=== PATIENT | female | born 1995 | race Caucasian/White ===

== ENCOUNTER 2016-03-14 18:06 | Emergency (ER) | payer BC ==
[~2016-03-14] VITALS: Ht 165.1 cm; Wt 90.9 kg
[~2016-03-14 18:06] MED LIST: ACETAMINOPHEN W1 TA6 PO; CLARITIN REDITAB5 MG PO; DIASTAT ACUDIAL10 MG REC; DOXYCYCLINE 10100 MG PO; MOTRIN800 MG PO; NO HOME MEDICATIONS
[2016-03-14 18:10] VITALS: TEMP 98.4
[2016-03-14] MEDS ORDERED: TEMOVATE0.05% TP (18:13)
[2016-03-14] MEDS ORDERED: LOW-OGESTREL 281 TAB PO (18:13)
[2016-03-14] MEDS ORDERED: PROVENTIL0.09 MG/A1 IH (18:13)
[2016-03-14] MEDS ORDERED: ATIVAN 0.50.5 MG/TAB PO (18:14)
[2016-03-14 19:00] LABS: BASO % 0.5 % (0.0-2.0); EOS # 0.1 (0.0-0.7); EOS % 1.6 % (0-4.0); GRAN # 4.3 (1.4-6.5); GRAN % 58.4 % (42.2-75.2); HEMATOCRIT 39.6 % (37.0-47.0); HEMOGLOBIN 14.1 g/dl (12.5-16.0); LYMPH # 2.3 (1.2-3.4); MEAN CELL VOLUME 84 fl (80.0-100.0); MEAN CORPUSCULAR HEMOGLOBIN 30 pg (27.0-31.0); MEAN CORPUSCULAR HGB CONC 36 g/dl (33.0-37.0); MONO # 0.6 (0.1-0.6); MONO % 8.2 % (1.7-9.3); PLATELET COUNT 249 K/mm3 (130-400); RED BLOOD COUNT 4.73 M/mm3 (4.10-5.30); WHITE BLOOD COUNT 7.4 K/mm3 (4.8-10.8)
[2016-03-14 19:12] LABS: ADJUSTED CALCIUM 9.3 mg/dL (8.4-10.2); ALANINE AMINOTRANSFERASE 40 U/L (9-52); ALBUMIN 4.2 gm/dL (3.5-5.0); ALKALINE PHOSPHATASE 58 U/L (50-136); ANION GAP 15 mmol/L (7-16); BILIRUBIN,TOTAL 0.7 mg/dL (0.0-1.0); BLOOD UREA NITROGEN 12 mg/dL (7-17); CALCIUM 9.5 mg/dL (8.4-10.2); CARBON DIOXIDE 24 mmol/L (22-30); CHLORIDE 103 mmol/L (98-107); CREATININE, serum 0.76 mg/dL (0.52-1.25); GLUCOSE 95 mg/dL (74-106); POTASSIUM 3.4 mmol/L (3.4-5.0); SODIUM 142 mmol/L (137-145); TOTAL PROTEIN 7.7 gm/dL (6.4-8.2)
[2016-03-14 19:30] LABS: TROPONIN-I < 0.012 ng/mL (0.000-0.034)
[2016-03-14 20:00] VITALS: BP 127/82; PULSE 86
== END 2016-03-14 20:01 | disposition home or self-care (01) ==
LOC: COL.ER 18:06
PROVIDERS: Emergency Medicine
DX: F41.9 Anxiety disorder, unspecified (principal)

== ENCOUNTER → 2016-08-25 | Outpatient (CLI) | payer BC, OTHER ==
[~2016-08-25] MED LIST changes: +ATIVAN 0.50.5 MG/TAB PO; +LOW-OGESTREL 281 TAB PO; +PROVENTIL0.09 MG/A1 IH; +TEMOVATE0.05% TP
== END ==
LOC: COL.VAS 12:52
DX: M79.89 Other specified soft tissue disorders (principal)

== ENCOUNTER 2020-11-03 01:11 | Inpatient (IN) | payer BC ==
[~2020-11-03] VITALS: Ht 165.1 cm; Wt 113.8 kg
[2020-11-03 01:48] LABS: COLLECTION METHOD CLEAN CATCH
[2020-11-03 01:53] LABS: BASO % 0.3 % (0.0-2.0); EOS % 0.1 % (0-4.0); GRAN % 88.7 % (42.2-75.2); HEMOGLOBIN 11.3 g/dl (12.5-16.0); LYMPH % 6.2 % (20.0-51.0); MEAN CELL VOLUME 87 fl (80.0-100.0); MEAN CORPUSCULAR HEMOGLOBIN 29 pg (27.0-31.0); MEAN CORPUSCULAR HGB CONC 34 g/dl (33.0-37.0); MEAN PLATELET VOLUME 9.3 fl (7.4-10.4); MONO # 0.7 (0.1-0.6); MONO % 4.3 % (1.7-9.3); PLATELET COUNT 238 K/mm3 (130-400); RED BLOOD COUNT 3.87 M/mm3 (4.10-5.30)
[2020-11-03 01:55] LABS: HEMATOCRIT 33.5 % (37.0-47.0)
[2020-11-03 01:58] LABS: MUCOUS Present /lpf; PH 6 (5-8); URINE APPEARANCE Cloudy; URINE BACTERIA Rare /hpf; URINE BILIRUBIN Negative (NEGATIVE); URINE BLOOD 1+ (NEGATIVE); URINE COLOR Yellow; URINE GLUCOSE Negative (NEGATIVE); URINE KETONE 1+ (NEGATIVE); URINE LEUKOCYTE ESTERASE 3+ (NEGATIVE); URINE NITRATE Negative (NEGATIVE); URINE PROTEIN(semi-quant) 1+ (NEGATIVE); URINE UROBILINOGEN Negative (NEGATIVE)
[2020-11-03 02:11] LABS: BILIRUBIN,TOTAL 0.8 mg/dL (0.2-1.2); C-REACTIVE PROTEIN 8.8 mg/dL (0.00-0.50); CALCIUM 9.2 mg/dL (8.4-10.2); CREATININE, serum 0.69 mg/dL (0.57-1.11); POTASSIUM 3.9 mmol/L (3.5-4.5); TOTAL PROTEIN 6.8 gm/dL (6.2-8.1)
[2020-11-03] MEDS ORDERED: GLUCOPHAGE500 MG/TAB PO (02:23)
[2020-11-03] MEDS ORDERED: CAPACET 325 MG-1 CAP (02:25)
--- NOTE | 2020-11-03 03:15 | NUR ---
FHR NST strip completed down in ER by this RN. No contractions noted per TOCO. Pt denies contractions, leaking of fluids or vaginal bleeding. Pt reports good movement. States "baby just kicked." Fluids running per CHARGE NURSE. 0415: observes FHR strip and okay with it at this time. New orders recieved. 0535: Pt wheeled to 222 and ambulatory to bed. Pt oriented to room. VS taken and plan of care explained to pt and spouse who verbalize their understanding. Denies questions at this time. Call light within reach.
[2020-11-03 05:35] VITALS: BP 113/57; PULSE 113; TEMP 99.3
--- NOTE | 2020-11-03 07:30 | NUR ---
PT REPORTS NAUSEA WITH A LARGE AMOUNT OF VOMITING, STATES "IM PRETTY SURE I JUST PUKED UP ALL OF MY TYLENOL YOU JUST GAVE ME," PT REPORTS RELIEF FOLLOWING EMESIS, AND REMAINS AFEBRILE. VITAL SIGNS STABLE. OFFERED NEW GOWN AND CLEAN UNDERWEAR. COOL WASH CLOTH TO FOREHEAD UPON EXITING ROOM. WILL CONTIUE TO MONITOR.
[2020-11-03 08:30] VITALS: BP 113/54; PULSE 123; TEMP 97.9
--- NOTE | 2020-11-03 09:10 | NUR ---
AT BEDSIDE, VERBAL ORDERS FOR NST QSHIFT INSTEAD OF QDAILY, CBC SCHEDULED FOR TOMORROW AM, CONTINUE WITH LR IVF @ 125ML/HR. NO FURTHER ORDERS AT THIS TIME.
--- NOTE | 2020-11-03 09:37 | NUR ---
Initial visit; Patient thanked Technology Risk Intern for looking in on her and states she is doing much better. Technology Risk Intern offered God's blessings and a 'get well' wish.
--- NOTE | 2020-11-03 11:45 | NUR ---
PT REPORTS "FEELING WORSE AGAIN AND FEBRILE". 99.0 ORAL TEMP OBTAINED. NST PERFORMED AT THIS TIME. HEART RATE TACHYCARDIC IN THE 200-210 RANGE. AT NURSES STATION AND NOTIFIED. ACCELERATIONS NOTED WITH NO DECELERATIONS. MODERATE VARIABILITY. PO MOTRIN AND TYLENOL ADMINISTERED PER . WE ARE TO CONTINUE PO TYLENOL ON Q6H SCHEDULE. UPON COMPLETION OF NST FHR WAS DOWN TO 175 BASELINE, CATEGORY 1 STRIP. PT REMAINS TACHYCARDIC (HR:118) WITH IVF INFUSING @ 125/HR PER ORDER. COOL WASH CLOTH TO FOREHEAD, WILL CONTINUE TO MONITOR. NO FURTHER ORDERS AT THIS TIME.
[2020-11-03 12:30] VITALS: BP 114/51; PULSE 118; TEMP 99.3
[2020-11-03 16:23] VITALS: BP 101/48; PULSE 100; TEMP 97.8
--- NOTE | 2020-11-03 16:30 | NUR ---
PT AFEBRILE, REPORTS SHE IS "FEELING MUCH BETTER THIS AFTERNOON." VITAL SIGNS STABLE. REPORTS POSITIVE MOVEMENT. DENIES NAUSEA. DENIES NEEDS AT THIS TIME. WILL CONTINUE WITH CURRENT POC.
[2020-11-03 20:16] VITALS: BP 115/67; PULSE 105; TEMP 98.4
[2020-11-03 23:20] VITALS: BP 112/56; PULSE 108; TEMP 99.1
[2020-11-04 03:30] VITALS: BP 96/47; PULSE 97; TEMP 97.9
[2020-11-04 08:00] VITALS: BP 112/58; PULSE 119; TEMP 98.7
[2020-11-04 08:03] LABS: MEAN CELL VOLUME 91 fl (80.0-100.0); MEAN CORPUSCULAR HGB CONC 33 g/dl (33.0-37.0); MEAN PLATELET VOLUME 9.3 fl (7.4-10.4); PLATELET COUNT 175 K/mm3 (130-400); RED BLOOD COUNT 3.27 M/mm3 (4.10-5.30); REDCELL DISTRIBUTION WIDTH-CV 13.3 % (11.5-14.5)
[2020-11-04 08:13] LABS: HEMATOCRIT 29.6 % (37.0-47.0); HEMOGLOBIN 9.8 g/dl (12.5-16.0); MEAN CORPUSCULAR HEMOGLOBIN 30 pg (27.0-31.0)
--- NOTE | 2020-11-04 08:45 | NUR ---
0845: AT BEDSIDE ASSESSING PT AND DISCUSSING POC. PT C/O NAUSEA & VOMITING AGAIN THIS MORNING ASSOCIATED WITH HER REPORTED MIGRAINE AND FLANK PAIN. VORB FOR FIORICET, MOTRIN, PO PROTONIX, TUMS AND TO DECREASE LR TO 75ML/HR. PT WILL GET X2 MORE DOSES OF IV ABX THEN CONTINUE WITH PO ABX FOLLOWING THIS AFTERNOONS DOSE. 0914: PT TAKES PO PAIN CONTROL AND NAUSEA MEDS. WITHIN 5 MINUTES PT HAS A LARGE AMOUNT OF EMESIS AND THERE ARE VISIBLE PILL DEBRIS IN BASIN. UNABLE TO DISTINGUISH HOW MUCH OF PO MEDS PT WAS ABLE TO RETAIN. PER TORB ADMINISTER IV ZOFRAN 4MG Q6H PRN, PROTONIX IV 20MG BID, AND 2MG IV MORPHINE X1. MAY GIVE PO FIORICET AGAIN IN 4 HOURS. ADMINISTERED PER ORDER.
[2020-11-04 12:23] VITALS: BP 122/62; PULSE 78; TEMP 98.8
[2020-11-04 16:22] VITALS: BP 103/50; PULSE 118; TEMP 99
--- NOTE | 2020-11-04 16:22 | NUR ---
PT REPORTS MIGRAINE IS "A LITTLE BIT BETTER, I THINK I AM JUST TIRED, AND THATS MAKING ME NAUSEOUS." PT REQUESTING IV PHENERGEN TO HELP RELIEVE NAUSEA AND HELP HER "GET SOME REST." IV PHENERGEN INFUSING AT THIS TIME. PT ABLE TO KEEP DOWN A SMALL AMOUNT OF SOUP AND CRACKERS THIS AFTERNOON WITHOUT VOMITING. HEART RATE ELEVATED AT 118, AND LOW GRADE TEMP OF 99.0 AT THIS TIME. PO TYLENOL ADMINISTERED AND PT ALSO WAS ABLE TO KEEP THAT ORAL MEDICATION DOWN.
[2020-11-04 19:30] VITALS: BP 134/72; PULSE 110; TEMP 100.2
[2020-11-05 03:30] VITALS: BP 133/67; PULSE 107; TEMP 99
[2020-11-05 07:15] LABS: MEAN CELL VOLUME 87 fl (80.0-100.0); MEAN CORPUSCULAR HGB CONC 34 g/dl (33.0-37.0); MEAN PLATELET VOLUME 9.3 fl (7.4-10.4); PLATELET COUNT 182 K/mm3 (130-400); RED BLOOD COUNT 3.05 M/mm3 (4.10-5.30); REDCELL DISTRIBUTION WIDTH-CV 13.2 % (11.5-14.5)
[2020-11-05 07:22] LABS: HEMATOCRIT 26.6 % (37.0-47.0); HEMOGLOBIN 8.9 g/dl (12.5-16.0); MEAN CORPUSCULAR HEMOGLOBIN 29 pg (27.0-31.0)
[2020-11-05 07:23] VITALS: BP 113/74; PULSE 78; TEMP 98.1
[2020-11-05] MEDS ORDERED: MACROBID 1100 MG/CAP PO (08:46)
[2020-11-05] MEDS ORDERED: PROTONIX20 MG PO (08:47)
== END 2020-11-05 09:20 | disposition home or self-care (01) | DRG 833 ==
LOC: COL.ER 01:11 → OB 02:12
PROVIDERS: Nurse Practitioner; ADMIT Student in an Organized Health Care Education/Training Program
DX: O23.02 Infections of kidney in pregnancy, second trimester (principal); O99.012 Anemia complicating pregnancy, second trimester; D64.9 Anemia, unspecified; O99.612 Diseases of the digestive system complicating pregnancy, second trimester; Z3A.25 25 weeks gestation of pregnancy; K21.9 Gastro-esophageal reflux disease without esophagitis; G43.909 Migraine, unspecified, not intractable, without status migrainosus
CPT/HCPCS: C9113; J2270; J2405; J2543; J2550; J7030; J7120

== ENCOUNTER 2021-02-01 07:17 | Inpatient (IN) | payer BC ==
[~2021-02-01] VITALS: Ht 165.1 cm; Wt 115.9 kg
[~2021-02-01 07:17] MED LIST changes: +CAPACET 325 MG-1 CAP; +GLUCOPHAGE500 MG/TAB PO; +MACROBID 1100 MG/CAP PO; +PROTONIX20 MG PO
[2021-02-02 19:30] VITALS: BP 129/72; PULSE 93; TEMP 99.1
[2021-02-02 20:30] VITALS: BP 122/70; PULSE 82
[2021-02-02 21:00] VITALS: BP 117/66; PULSE 91
--- NOTE | 2021-02-02 21:46 | NUR ---
26 YO AT 39.4 WEEKS GESTATION TO LDR 5 FOR ELECTIVE INDUCTION OF LABOR. PT REPORTS A FEW IRREG CTXS, DENIES VAGINAL BLEEDING OR LEAKING FLUID AND REPORTS GOOD ACTIVITY. INDUCTION PROCESS DISCUSSED WITH PT AND , ALL QUESTIONS ANSWERED
[2021-02-02 22:16] LABS: BASO % 0.4 % (0.0-2.0); EOS % 0.3 % (0.0-4.0); GRAN # 6.6 K/mm3 (1.4-6.5); GRAN % 70.4 % (42.2-75.2); HEMOGLOBIN 10.2 g/dl (12.5-16.0); LYMPH # 1.9 K/mm3 (1.2-3.4); MEAN CELL VOLUME 82 fl (80.0-100.0); MEAN CORPUSCULAR HEMOGLOBIN 27 pg (27-31); MEAN CORPUSCULAR HGB CONC 33 g/dl (33.0-37.0); MEAN PLATELET VOLUME 10.5 fl (7.4-10.4); MONO # 0.8 K/mm3 (0.1-0.6); MONO % 8.7 % (1.7-9.3); PLATELET COUNT 253 K/mm3 (130-400); RED BLOOD COUNT 3.78 M/mm3 (4.10-5.30)
[2021-02-02 22:17] LABS: HEMATOCRIT 30.8 % (37.0-47.0)
[2021-02-03] VITALS (57 sets, daily range): BP systolic 112–163; BP diastolic 47–96; PULSE 67–107; TEMP 97.8–99
--- NOTE | 2021-02-03 01:39 | NUR ---
CONTRACTIONS INDETERMINENT, EFM OFF, PT UP TO BATHROOM
--- NOTE | 2021-02-03 01:45 | NUR ---
DIFFICULT TO CLICKING MACHINE OPERATOR FHT'S RN REMAINS AT BEDSIDE ATTEMPTING TO GET CONSISTENT TRACING OF FHT'S
--- NOTE | 2021-02-03 03:12 | NUR ---
CTXS NOT TRACING ON EFM, PT FEELING CRAMPING OFF AND ON
--- NOTE | 2021-02-03 03:17 | NUR ---
FHT'S NOT TRACING RN AT BEDSIDE ADJUSTING US
--- NOTE | 2021-02-03 05:22 | NUR ---
EFM OFF, UP TO SHOWER
--- NOTE | 2021-02-03 09:35 | NUR ---
0935- Dr. Hahn to bedside. SVE by provider /-2, AROM for moderate amount of clear fluid. Carolyn care provided. Pt wedge left. Pt requesting epidural. Jemal Sifuentes CRNA on unit and notified. 0940- Pt to edge of bed for epidural placement. 0953- FHR tracing intermittently due to maternal position and habitus. Pitocin paused. 0954- Epidural placed and single shot at this time by Jemal Sifuentes CRNA. See anesthesia record. 1001- Pt wedge left. Plan of care and safety precautions reviewed. Pt verbalizes understanding. Pitocin resumed at 14mu.
--- NOTE | 2021-02-03 11:25 | NUR ---
Bilateral side lying hip release.
--- NOTE | 2021-02-03 13:40 | NUR ---
1340- FHR and ctx tracing intermittently. FHR decels audible to 90's with RN at bedside adj EFM. Difficult to determine FHR decel onset. Patient right and left lateral. LR bolus. 1347- Dr. Hahn updated on pt. See physician notification. 1353- FSE reviewed with pt who verbalizes understanding and agreeable to placement. FSE placed by this RN.
--- NOTE | 2021-02-03 14:56 | NUR ---
1456- Patient calls RN to bedside and reports increased rectal pressure. SVE by this RN C/+2. 1503- Dr. Hahn updated on pt. See physician notification. Plan of care reviewed with patient who verbalizes understanding. Instructed on pushing with contractions. 1515- Patient begins to push with contractions with RN at bedside. Moves vertex well. 1524- Dr. Hahn requested for delivery. See physician notification. 1533- Dr. Hahn to bedside for delivery. 1540- Delivery of head. NC x1 reduced on perineum. 20 second soulder dystocial. Resolves with Geovani and rotation by provider. Complete delivery of body at 1540. Pitocin paused. 1550- Spontaneous and intact delivery of placenta. Pitocin to 333ml/hr per protocol. 2nd degree perineal lac repaired by Dr. Hahn. Free flow noted. Fundus boggy, firms with massage. 1555- Methergine given. See emar. 1557- Straight cath by Dr. Hahn. 1600- Cytotec 1000mcg given by Dr. Hahn. See emar. Fundus firm, midline, and bleeding minimal. Carolyn care provided, pads changed, and ice pack to perineum. Plan of care and safety precautions reviewed. See doctor dictation, anesthesia record, and nurses notes.
[2021-02-04 04:30] VITALS: BP 105/55; PULSE 79; TEMP 98.3
[2021-02-04 07:15] VITALS: BP 117/66; PULSE 78; TEMP 98.6
[2021-02-04] MEDS ORDERED: IBU800 M1 PO (09:08)
[2021-02-04 12:45] VITALS: BP 121/76; PULSE 74; TEMP 97.8
--- NOTE | 2021-02-04 12:58 | NUR ---
Ibuprofen 800 mg, tylenol 1000 mg given as ordered.
[2021-02-04 16:00] VITALS: BP 118/63; PULSE 76; TEMP 97.8
--- NOTE | 2021-02-04 19:00 | NUR ---
1900-Discharge instructions given to patient. Patient verbalizes understanding. All questions answered at this time. 1906-Patient ambulates off unit with spouse and infant in carseat.
== END 2021-02-04 19:07 | disposition home or self-care (01) | DRG 806 ==
LOC: LDR 02-02 07:17 → OB 02-02 18:55 → LDR 02-02 18:55 → OB 02-03 19:15
PROVIDERS: ADMIT Student in an Organized Health Care Education/Training Program
PROC: 10E0XZZ Delivery of Products of Conception, External Approach (ICD-10-PCS; principal; 2021-02-02)
PROC: 0KQM0ZZ Repair Perineum Muscle, Open Approach (ICD-10-PCS; 2021-02-02)
PROC: 10907ZC Drainage of Amniotic Fluid, Therapeutic from Products of Conception, Via Natural or Artificial Opening (ICD-10-PCS; 2021-02-02)
PROC: 3E0P7VZ Introduction of Hormone into Female Reproductive, Via Natural or Artificial Opening (ICD-10-PCS; 2021-02-02)
PROC: 3E033VJ Introduction of Other Hormone into Peripheral Vein, Percutaneous Approach (ICD-10-PCS; 2021-02-02)
DX: O99.344 Other mental disorders complicating childbirth (principal); O72.1 Other immediate postpartum hemorrhage; Z37.0 Single live birth; O99.824 Streptococcus B carrier state complicating childbirth; O99.284 Endocrine, nutritional and metabolic diseases complicating childbirth; O99.214 Obesity complicating childbirth; E28.2 Polycystic ovarian syndrome; F41.9 Anxiety disorder, unspecified; O99.52 Diseases of the respiratory system complicating childbirth; J45.909 Unspecified asthma, uncomplicated; E55.9 Vitamin D deficiency, unspecified; O69.81X0 Labor and delivery complicated by cord around neck, without compression, not applicable or unspecified; O76 Abnormality in fetal heart rate and rhythm complicating labor and delivery; O66.0 Obstructed labor due to shoulder dystocia; O70.1 Second degree perineal laceration during delivery; Z3A.39 39 weeks gestation of pregnancy
CPT/HCPCS: J2210; J2540; J2590; J2795; J7120

== ENCOUNTER → 2021-08-05 | Outpatient (CLI) | payer BC ==
[~2021-08-05] MED LIST changes: +IBU800 M1 PO
== END ==
LOC: COL.RAD 09:03
DX: K82.4 Cholesterolosis of gallbladder (principal)
CPT/HCPCS: A9537

== ENCOUNTER 2021-10-25 12:42 | Day surgery (SDC) | payer BC ==
[~2021-10-25] VITALS: Ht 165.1 cm; Wt 115.4 kg
[2021-10-25] MEDS ORDERED: ZOLOFT 25MG25 MG PO (13:44)
[2021-10-25] MEDS ORDERED: ZYRTEC 10MG10 MG PO (13:45)
[2021-10-25] MEDS ORDERED: PROTONIX20 MG PO (13:45)
[2021-10-25] MEDS ORDERED: BIRTH CONTROL (13:46)
[2021-10-25 13:58] VITALS: BP 137/76; PULSE 95; TEMP 97.6
--- NOTE | 2021-10-25 14:17 | NUR ---
1330 - PT was brought to [facility] from [facility] waiting area by RN.
[2021-10-25] MEDS ORDERED: NORCO 325 MG-51 TAB PO (15:30)
[2021-10-25 16:25] VITALS: BP 125/79; PULSE 100; TEMP 97.8
[2021-10-25 16:30] VITALS: BP 107/63; PULSE 102
[2021-10-25 16:45] VITALS: BP 118/63; PULSE 107
[2021-10-25 17:00] VITALS: BP 114/66; PULSE 100
[2021-10-25 17:15] VITALS: BP 116/66; PULSE 96
--- NOTE | 2021-10-25 18:05 | NUR ---
1625 Pt brought from PACU to [facility] [place] [address] via cart. Monitors on and alarms set. Call light within reach. Report received from NARCISO Tineo. Pt alert and oriented and in no apparent distress. Pt requests water and crackers and reports pain rated at 3/10 and no nausea. Pt's brought back to discharge bay. 1715 Pt taking food and drink well. Pt reports no complications. 1730 Pt ambulates to restroom with this RN assist. Pt voids and returns with assistance to the discharge room. 1750 Discharge instructions given to pt and . All questions answered to their satisfaction. Handed to them are a thank you card and discharge information. Pt instructed and understands to call Dr. Toney's office tomorrow to schedule a follow-up appointment. 1805 Pt transferred out of hospital via wheelchair and this RN assist to private vehicle driven by pt's .
== END 2021-10-25 18:05 | disposition home or self-care (01) ==
LOC: SDCO 12:42
DX: K81.1 Chronic cholecystitis (principal); K21.9 Gastro-esophageal reflux disease without esophagitis; E66.9 Obesity, unspecified; Z68.39 Body mass index [BMI] 39.0-39.9, adult; Z79.899 Other long term (current) drug therapy
CPT/HCPCS: J0330; J1100; J1170; J1885; J2370; J2405; J2704; J3010; J7120